=== PATIENT | male | born 1955 | race Caucasian/White ===

== ENCOUNTER 2016-11-08 09:13 | Observation (INO) | payer OTHER ==
[2016-11-08] MEDS ORDERED: ASPIRIN 81 MG TAB.CHEW PO ONE (09:18)
[2016-11-08] MEDS ORDERED: ASPIRIN 81 MG TAB.CHEW ONE (09:22)
--- NOTE | 2016-11-08 09:34 | ERNOTE ---
Chest Pain/Cardiac HPI Time Seen by Provider: 11/08/16 09:14 Source: patient Exam Limitations: no limitations Allergies/Adverse Reactions: Allergies No Known Allergies Allergy (Verified 05/14/13 14:21) Home Medications: HOME MEDICATIONS Lisinopril 20 mg PO BID 03/08/13 [Last Taken Unknown] glipiZIDE [Glipizide Xl] 10 mg PO BID 03/08/13 [Last Taken Unknown] metFORMIN HCL [Metformin HCl] 1,000 mg PO BID 03/08/13 [Last Taken Unknown] Aspirin [Aspirin Chewable] 81 mg PO DAILY 11/08/16 [Last Taken Unknown] Atorvastatin Calcium [Lipitor] 40 mg PO DAILY 11/08/16 [Last Taken Unknown] Metoclopramide HCl [Reglan] 10 mg PO QID 11/08/16 [Last Taken Unknown] Multivit-Min/Iron Fum/Folic AC [Fpwrg-Zwcduaf-Kzgxyedj Tablet] 1 each PO DAILY 11/08/16 [Last Taken Unknown] Omeprazole 40 mg PO DAILY 11/08/16 [Last Taken Unknown] Pioglitazone HCl [Actos] 15 mg PO DAILY 11/08/16 [Last Taken Unknown] Ranitidine HCl [Zantac] 300 mg PO HS 11/08/16 [Last Taken Unknown] sitaGLIPtin PHOSPHATE [Januvia] 50 mg PO DAILY 11/08/16 [Last Taken Unknown] Narrative: Patient has had intermittent chest pain for about two months, symptoms usually twice a week, increasing in frequency and severity, had on episode yesterday and one this morning that lasted 30 minutes. He still has chest pressure (4/10) now, worse with exertion Date (Duration): 11/08/16 Time (Timing): 08:15 Timing: intermittent Severity/Quality: moderate, pressure Location: central Chest Pain Radiation: shoulders Activities at Onset: activity Modifying Factors - Improves: Present: rest Modifying Factors - Worsens: Present: exercise. Absent: breathing, coughing, movement Nitro Today/Relief: no nitro taken today Aspirin Treatment Today: 81 mg x 1, provided at home Associated Symptoms: Present: dizziness, nausea. Absent: syncope, shortness of breath, diaphoresis Prior Chest Pain/Cardiac Workup: Reports: no prior cardiac workup Prior Treatment: Reports: recently seen - diagnosed with refluc and given antacids Review of Systems - Review of Systems Constitutional: Absent: recent illness, fever ENT: Absent: nose congestion, sore throat Respiratory: Absent: shortness of breath, cough Cardiology: Present: See HPI, chest pain. Absent: palpitations, syncope Gastrointestinal/Abdominal: Present: nausea. Absent: vomiting, diarrhea, abdominal pain Genitourinary: Present: no symptoms reported Musculoskeletal: Present: no symptoms reported Skin: Present: no symptoms reported Neurological: Present: dizziness/light-headedness. Absent: headache, weakness, numbness - Patient's Past Medical History Patient History - Medical: Diabetes Type 2, Kidney stone Patient History - Cardiac/Respiratory: Hypertension, Hyperlipidemia Patient History - Surgical Procedures: Hernia Repair - Family History Mother Family History - Medical: Diabetes Type 2 - Social History Living Situations: home Smoking Status: Never smoker Alcohol Use: none Drug Use: none - Immunizations Immunizations Up to Date: Yes Physical Exam - Physical Exam General Appearance: Present: wd/wn, alert, no apparent distress, anxious, obese Eye Exam: Normal inspection: bilateral Respiratory: Present: no respiratory distress, normal breath sounds, no accessory muscle use, chest nontender, lungs clear Cardiovascular/Chest: Present: regular rate, rhythm, no murmur Gastrointestinal/Abdominal: Present: normal bowel sounds, nontender, nondistended, soft Extremity Exam: Present: no edema Neurological Exam: Present: alert, oriented, normal mood/affect Skin Exam: Present: normal color, warm/dry ED Progress - Results and Orders Patient's Lab Results:: I have reviewed the patient's lab results. - Vital Signs Patient's Vital Signs:: I have reviewed the patient's vital signs. - EKG EKG: NSR, nonspecific ST T wave changes - anterior leads, changed from - 2013 EKG read: Interp. by me - X-Ray X-Ray #1 X-Ray: chest - no acute findings Interpretation: Reviewed by me - Progress/Reassessment Progress Note-Subjective: 11/08/16 09:33 pain down to 02/26 after one nitro 11/08/16 10:09 no pain nor pressure 11/08/16 10:20 patient had symptoms again when walking to the bathroom, resolved with nitro, no pain now discussed test results with patient and family, agreed to admission 11/08/16 10:30 discussed with lali Maya to admit Departure Clinical Impression: Chest pain Qualifiers: Chest pain type: precordial pain Qualified Code(s): R07.2 - Precordial pain - Departure Disposition: [facility] Condition: Stable Referrals: Tera Ashley MD [Primary Care Provider] -
[2016-11-08] MEDS ORDERED: NITROGLYCERIN 0.4 MG/TAB BTL SL ONE ×2 (09:35)
[2016-11-08 09:47] LABS: Hematocrit 40.5 % (42.0-52.0); Hemoglobin 13.9 gm/dL (13.5-18.0); Mean Cell Volume 91.8 fl (78-100); Mean Corpuscular Hemoglobin 31.5 pg (27-31); Mean Corpuscular Hgb Conc 34.3 g/dl (32-36); Mean Platelet Volume 9.4 fl (6.0-9.5); Neutrophil # 5.2 K/mm3 (1.3-6.0); Neutrophil % 58.5 % (42-75.0); Platelet Count 323 K/mm3 (150-450); Red Blood Count 4.41 M/mm3 (4.7-6.0); Red Cell Distribution Width 12.6 % (11.5-14.0); White Blood Count 8.9 K/mm3 (4.0-10.5)
[2016-11-08 10:09] LABS: Albumin * 3.7 gm/dl (3.4-5.0); Anion Gap 18.5 mmol/L (6.8-13.8); Bilirubin, Total 0.3 mg/dL (0.0-1.1); Ca. Corrected For Albumin 8.6 mg/dL (8.4-10.2); Calcium * 8.7 mg/dL (7.9-10.9); Carbon Dioxide 21.7 mmol/L (24-32.6); Potassium 4.2 mmol/L (3.4-4.6); Total Protein 7.3 gm/dL (6.2-8.2)
[2016-11-08 10:12] LABS: Troponin I 0.066 ng/ml (0.00-0.10)
[2016-11-08] MEDS ORDERED: FLU VACC QS2017-18(6MOS UP)/PF 60 MCG/0.5 ML SYRINGE IM ONE (14:00)
[2016-11-08 14:56] VITALS: BP 131/73
--- NOTE | 2016-11-08 15:22 | HP ---
<Ariana Benitez - Last Filed: 11/08/16 16:49> Chief Complaint - Chief Complaint Date of Service: 11/08/16 Time of Service: 15:22 Chief Complaint: chest pain History of Present Illness: Toni is a 61 year old male patient with a PMH of uncontrolled DM, HTN, HLD who presented to the ER with c/o CP. States that at breakfast, he started having sharp chest pain. chest pain radiated to both of his arms. no diaphoresis, no nausea. c/o dizziness with episodes with feelings of lightheadedness. after a few minutes, patient states that the sharp chest pain turned into a few pressure for the next 25 minutes. indicates that the pressure felt like a 100 lbs weight sitting on his chest. patient, himself, has no personal history of CAD or CHF. states significant family history of CAD, including bypass. In the ER, patient was given 1 sl ntg with relief of his chest pain. A little while later, the patient got up to use the restroom in the ER and while walking to the restroom had a return of the same chest pain that required another SL ntg. ER eval significant for serum glucose in the 300s. initial troponin 0.066. ekg showed no acute abnormalities. patient to be admitted for chest pain of unknown origin. - Patient's Past Medical History Patient History - Medical: Diabetes Type 2, Kidney stone Patient History - Cardiac/Respiratory: Hypertension, Hyperlipidemia Patient History - Cancer: No Hx of Cancer Patient History - Surgical Procedures: Hernia Repair Patient History - Other: None - Family History Mother Family History - Medical: , Diabetes Type 2 Father Family History - Medical: Family History - Cancer: Bone, Stomach - Social History Living Situations: spouse Abuse History: No History of abuse Psych History: No pertinent hx Smoking Status: Never smoker Have you smoked in the past 12 months: No Do you dip or chew tobacco: No Patient requests Smoking Cessation Consult: No Initiate information on Smoking Cessation: No Alcohol Use: none Drug Use: none - Immunizations Immunizations Up to Date: Yes Hx Pneumococcal Vaccination: No History of Influenza Vaccine: No Review Of Systems (GEN) - Review of Systems Generalized/Overall Review: Present: No Symptoms Reported EENTM: Present: No Symptoms Reported Respiratory: Present: No Symptoms Reported Cardiac: Present: Chest Pain Abdominal: Present: No Symptoms Reported Genitourinary: Present: No Symptoms Reported Musculoskeletal: Present: No Symptoms Reported Neurological: Present: No Symptoms Reported Skin: Present: No Symptoms Reported Endocrine: Present: No Symptoms Reported Misc: All systems neg except as marked Allergies/Adverse Reactions: Allergies Allergy/AdvReac Type Severity Reaction Status Date / Time No Known Allergies Allergy Verified 11/08/16 12:17 Home Medications: HOME MEDICATIONS Lisinopril 20 mg PO BID 03/08/13 [Last Taken 11/08/16] glipiZIDE [Glipizide Xl] 10 mg PO BID 03/08/13 [Last Taken 11/08/16] metFORMIN HCL [Metformin HCl] 1,000 mg PO BID 03/08/13 [Last Taken 11/08/16] Aspirin [Aspirin Chewable] 81 mg PO DAILY 11/08/16 [Last Taken 11/08/16] Atorvastatin Calcium [Lipitor] 40 mg PO DAILY 11/08/16 [Last Taken 11/08/16] Metoclopramide HCl [Reglan] 10 mg PO QID 11/08/16 [Last Taken 11/08/16] Multivit-Min/Iron Fum/Folic AC [Mqsll-Kmzzhik-Wxftsxco Tablet] 1 each PO DAILY 11/08/16 [Last Taken 11/08/16] Omeprazole 40 mg PO DAILY 11/08/16 [Last Taken 11/08/16] Pioglitazone HCl [Actos] 15 mg PO DAILY 11/08/16 [Last Taken 11/08/16] Ranitidine HCl [Zantac] 300 mg PO HS 11/08/16 [Last Taken 11/07/16] sitaGLIPtin PHOSPHATE [Januvia] 50 mg PO DAILY 11/08/16 [Last Taken 11/08/16] Exam - Exam Vital Signs: Vital Signs - Last Taken Temp 36.8 C 11/08/16 14:40 Pulse 82 11/08/16 14:40 Resp 18 11/08/16 14:40 BP 131/73 11/08/16 14:40 Pulse Ox 95 11/08/16 14:40 Constitutional: Present: Alert, Oriented x3, Cooperative, No distress ENT Exam: Present: hearing grossly normal Eye Exam: bilateral eye: normal inspection Neck: Present: full range of motion, supple Back Exam: Present: normal inspection, no CVA tenderness Respiratory: Present: lungs clear, normal breath sounds, no respiratory distress Cardiovascular/Chest: Present: normal peripheral pulses, regular rate, rhythm, no chest tenderness, no edema Peripheral Pulses: carotid (R): 2+, carotid (L): 2+, dorsalis-pedis (R): 2+, dorsalis-pedis (L): 2+, radial (R): 2+, radial (L): 2+ Abdomen: Present: Normal bowel sounds, soft, nontender, nondistended /Rectal: Present: Exam deferred Extremity: Present: normal range of motion, normal inspection Skin Exam: Present: normal color, warm/dry, no cyanosis Diagnostic Studies: Laboratory Results WBC 8.9 K/mm3 (4.0-10.5) 11/08/16 09:35 RBC 4.41 M/mm3 (4.7-6.0) L 11/08/16 09:35 Hgb 13.9 gm/dL (13.5-18.0) 11/08/16 09:35 Hct 40.5 % (42.0-52.0) L 11/08/16 09:35 MCV 91.8 fl (78-100) 11/08/16 09:35 MCH 31.5 pg (27-31) H 11/08/16 09:35 MCHC 34.3 g/dl (32-36) 11/08/16 09:35 RDW 12.6 % (11.5-14.0) 11/08/16 09:35 Plt Count 323 K/mm3 (150-450) 11/08/16 09:35 MPV 9.4 fl (6.0-9.5) 11/08/16 09:35 Immature Gran % (Auto) 0.60 % (0.001-0.429) H 11/08/16 09:35 Immature Gran # (Auto) 0.05 K/mm3 (0.000-0.0310) H 11/08/16 09:35 Neutrophils % 58.5 % (42-75.0) 11/08/16 09:35 Lymphocytes % 27.4 % (20-51) 11/08/16 09:35 Monocytes % 9.9 % (0.0-9) H 11/08/16 09:35 Eosinophils % 2.8 % (0.0-3.0) 11/08/16 09:35 Basophils % 0.8 % (0.0-1.0) 11/08/16 09:35 Nucleated RBC % 0.0 k/mm3 (0-1) 11/08/16 09:35 Neutrophils # 5.2 K/mm3 (1.3-6.0) 11/08/16 09:35 Lymphocytes # 2.4 k/mm3 (1.5-3.5) 11/08/16 09:35 Monocytes # 0.9 k/mm3 (0.0-1.0) 11/08/16 09:35 Eosinophils # 0.3 k/mm3 (0.0-0.7) 11/08/16 09:35 Absolute Basophils 0.1 k/mm3 (0.0-0.1) 11/08/16 09:35 Sodium 135 mmol/L (132-142) 11/08/16 09:35 Plasma Sodium 139 mmol/L (130-142) 11/08/16 09:35 Potassium 4.2 mmol/L (3.4-4.6) 11/08/16 09:35 Chloride 99 mmol/L (97-106) 11/08/16 09:35 Carbon Dioxide 21.7 mmol/L (24-32.6) L 11/08/16 09:35 Anion Gap 18.5 mmol/L (6.8-13.8) H 11/08/16 09:35 BUN 16 mg/dL (6-23) 11/08/16 09:35 Creatinine 0.94 mg/dL (0.4-1.4) 11/08/16 09:35 Est GFR (Non-Af Amer) 86 mL/min (60-130) 11/08/16 09:35 BUN/Creatinine Ratio 17.0 (9.0-21.6) 11/08/16 09:35 Random Glucose 345 mg/dL (70-110) H 11/08/16 09:35 Calcium 8.7 mg/dL (7.9-10.9) 11/08/16 09:35 Calcium Adj for Albumin 8.6 mg/dL (8.4-10.2) 11/08/16 09:35 Total Bilirubin 0.3 mg/dL (0.0-1.1) 11/08/16 09:35 AST 15 U/L (0-48) 11/08/16 09:35 ALT 46 U/L (19-67) 11/08/16 09:35 Alkaline Phosphatase 103 U/L (50-170) 11/08/16 09:35 Troponin I 0.066 ng/ml (0.00-0.10) 11/08/16 09:35 Total Protein 7.3 gm/dL (6.2-8.2) 11/08/16 09:35 Albumin 3.7 gm/dl (3.4-5.0) 11/08/16 09:35 Assessment/Plan - Narrative Narrative: 60 year old male admitted with chest pain and unstable angina. trend troponins and ekg. monitor on tele. cont aspirin and statin. heart diet and consistent carb diet. if troponins and ekg negative, recommend stress test. addendum: 2nd troponin critical at 0.280. ekg showed no acute change. diagnosis NSTEMI and unstable transfer. emergent transfer to [facility] for cardiology consult. - Assessment/Plan (1) Chest pain of unknown etiology Problem: Acute (2) HTN (hypertension) Problem: Acute (3) HLD (hyperlipidemia) Problem: Acute (4) Uncontrolled diabetes mellitus Problem: Acute (5) Unstable angina Problem: Acute (6) NSTEMI (non-ST elevated myocardial infarction) Problem: Acute <Tera Ashley - Last Filed: 11/08/16 19:55> History of Present Illness: I agree with the initial treatment assessment and plan. I personally guided all of our nurse practitioner hospitalist care for this patient. Immunizations: IMMUNIZATION HX Immunizations Up to Date Yes History of Influenza Vaccine No Hx Pneumococcal Vaccination No Exam - Exam Vital Signs: Vital Signs - Last Taken Temp 36.8 C 11/08/16 14:40 Pulse 82 11/08/16 16:51 Resp 18 11/08/16 14:40 BP 131/73 11/08/16 16:51 Pulse Ox 95 11/08/16 14:40 Diagnostic Studies: Abnormal Lab Results 11/08/16 11/08/16 Range/Units 15:06 15:30 Hemoglobin A1c 8.5 H (4.00-6.0) % Troponin I 0.280 H* (0.00-0.10) ng/ml Laboratory Results WBC 8.9 K/mm3 (4.0-10.5) 11/08/16 09:35 RBC 4.41 M/mm3 (4.7-6.0) L 11/08/16 09:35 Hgb 13.9 gm/dL (13.5-18.0) 11/08/16 09:35 Hct 40.5 % (42.0-52.0) L 11/08/16 09:35 MCV 91.8 fl (78-100) 11/08/16 09:35 MCH 31.5 pg (27-31) H 11/08/16 09:35 MCHC 34.3 g/dl (32-36) 11/08/16 09:35 RDW 12.6 % (11.5-14.0) 11/08/16 09:35 Plt Count 323 K/mm3 (150-450) 11/08/16 09:35 MPV 9.4 fl (6.0-9.5) 11/08/16 09:35 Immature Gran % (Auto) 0.60 % (0.001-0.429) H 11/08/16 09:35 Immature Gran # (Auto) 0.05 K/mm3 (0.000-0.0310) H 11/08/16 09:35 Neutrophils % 58.5 % (42-75.0) 11/08/16 09:35 Lymphocytes % 27.4 % (20-51) 11/08/16 09:35 Monocytes % 9.9 % (0.0-9) H 11/08/16 09:35 Eosinophils % 2.8 % (0.0-3.0) 11/08/16 09:35 Basophils % 0.8 % (0.0-1.0) 11/08/16 09:35 Nucleated RBC % 0.0 k/mm3 (0-1) 11/08/16 09:35 Neutrophils # 5.2 K/mm3 (1.3-6.0) 11/08/16 09:35 Lymphocytes # 2.4 k/mm3 (1.5-3.5) 11/08/16 09:35 Monocytes # 0.9 k/mm3 (0.0-1.0) 11/08/16 09:35 Eosinophils # 0.3 k/mm3 (0.0-0.7) 11/08/16 09:35 Absolute Basophils 0.1 k/mm3 (0.0-0.1) 11/08/16 09:35 Sodium 135 mmol/L (132-142) 11/08/16 09:35 Plasma Sodium 139 mmol/L (130-142) 11/08/16 09:35 Potassium 4.2 mmol/L (3.4-4.6) 11/08/16 09:35 Chloride 99 mmol/L (97-106) 11/08/16 09:35 Carbon Dioxide 21.7 mmol/L (24-32.6) L 11/08/16 09:35 Anion Gap 18.5 mmol/L (6.8-13.8) H 11/08/16 09:35 BUN 16 mg/dL (6-23) 11/08/16 09:35 Creatinine 0.94 mg/dL (0.4-1.4) 11/08/16 09:35 Est GFR (Non-Af Amer) 86 mL/min (60-130) 11/08/16 09:35 BUN/Creatinine Ratio 17.0 (9.0-21.6) 11/08/16 09:35 Random Glucose 345 mg/dL (70-110) H 11/08/16 09:35 Mean Blood Glucose 197 mg/dL 11/08/16 15:06 Hemoglobin A1c 8.5 % (4.00-6.0) H 11/08/16 15:06 Calcium 8.7 mg/dL (7.9-10.9) 11/08/16 09:35 Calcium Adj for Albumin 8.6 mg/dL (8.4-10.2) 11/08/16 09:35 Total Bilirubin 0.3 mg/dL (0.0-1.1) 11/08/16 09:35 AST 15 U/L (0-48) 11/08/16 09:35 ALT 46 U/L (19-67) 11/08/16 09:35 Alkaline Phosphatase 103 U/L (50-170) 11/08/16 09:35 Troponin I 0.280 ng/ml (0.00-0.10) H* 11/08/16 15:30 Total Protein 7.3 gm/dL (6.2-8.2) 11/08/16 09:35 Albumin 3.7 gm/dl (3.4-5.0) 11/08/16 09:35
[2016-11-08 15:37] LABS: Hemoglobin A1C 8.5 % (4.00-6.0)
[2016-11-08] MEDS ORDERED: CLOPIDOGREL BISULFATE 75 MG TABLET PO STA (16:14)
[2016-11-08] MEDS ORDERED: HEPARIN SODIUM,PORCINE/D5W 25,000 UNITS/500 ML BAG IV SCH (16:15)
[2016-11-08] MEDS ORDERED: ATORVASTATIN CALCIUM 40 MG TABLET PO STA (16:15)
[2016-11-08] MEDS ORDERED: HEPARIN SODIUM,PORCINE 5,000 UNITS/ML VIAL IV ONE (16:20)
[2016-11-08] MEDS ORDERED: NITROGLYCERIN IN 5 % DEXTROSE 50 MG/250 ML INFUS..BTL IV PRN (16:48)
[2016-11-08] MEDS ORDERED: glipiZIDE 5 MG TAB.SR.24H PO SCH (17:00)
[2016-11-08] MEDS ORDERED: METOCLOPRAMIDE HCL 10 MG TABLET PO SCH (17:00)
--- NOTE | 2016-11-08 17:31 | DS ---
<GabiTera - Last Filed: 11/08/16 19:55> Transfer Discharge Summary - Diagnosis(s)/Problems (1) HLD (hyperlipidemia) Problem: Acute (2) HTN (hypertension) Problem: Acute (3) Unstable angina Problem: Acute - Course Description of Stay: I agree with the plan to transfer, and was instrumental with all of the treatment components along the way. I guided our nurse practitioner hospitalist directly in the care of this patient. The patient had recurrent chest pain while here, troponin elevated, he was given a dose of Plavix, 600 mg po, a loading dose of heparin, then a drip, and started on a nitro drip. He was given atorvastatin 40 mg po. Our hospitalist arranged transfer to [facility] by telephone. The physician there accepted, transfer was by ambulance. Procedures Performed: none - Results and Findings Results and Findings: Laboratory Results - last 24 hr 11/08/16 11/08/16 15:06 15:30 Mean Blood Glucose 197 Hemoglobin A1c 8.5 H Troponin I 0.280 H* - Medications Medications: Active Medications Discontinued Medications Aspirin (Aspirin Chewable) 243 mg PO ONCE ONE Stop: 11/08/16 09:19 Last Admin: 11/08/16 09:25 Dose: 243 mg Atorvastatin Calcium (Lipitor) 40 mg PO ONCE STA Stop: 11/08/16 16:16 Last Admin: 11/08/16 16:23 Dose: 40 mg Clopidogrel Bisulfate (Plavix) 600 mg PO ONCE STA Stop: 11/08/16 16:15 Last Admin: 11/08/16 16:18 Dose: 600 mg Glipizide (Glucotrol Xl) 10 mg PO BIDWM [place] Stop: 12/08/16 17:01 Last Admin: 11/08/16 16:27 Dose: 10 mg Heparin Sodium (Porcine) (Heparin Sodium) 4,000 units IV ONCE ONE Stop: 11/08/16 16:21 Last Admin: 11/08/16 16:22 Dose: 4,000 units Heparin Sodium/Dextrose (Heparin 25,000 Units/D5w 500 Ml) 25,000 units in 500 mls @ 20 mls/hr IV Q24H [place] PRN Reason: 1,000 UNITS/HR Stop: 12/08/16 16:16 Last Admin: 11/08/16 16:21 Dose: 1,000 units/hr, 20 mls/hr Nitroglycerin/Dextrose (Nitroglycerin 50 Mg/D5w 250ml) 50 mg in 250 mls @ 1.5 mls/hr IV TITR PRN; Protocol; 5 MCG/MIN PRN Reason: CHEST PAIN Stop: 12/08/16 16:49 Last Admin: 11/08/16 16:51 Dose: 5 mcg/min, 1.5 mls/hr Influenza Virus Vaccine Quadrival (Flulaval Quad [id number] Syringe) 60 mcg IM .ONCE ONE Stop: 11/08/16 14:01 Last Admin: 11/08/16 14:14 Dose: 60 mcg Metoclopramide HCl (Reglan) 10 mg PO QID [place] Stop: 12/08/16 17:01 Last Admin: 11/08/16 16:28 Dose: 10 mg Nitroglycerin (Nitrostat) 0.4 mg SL ONCE ONE Stop: 11/08/16 09:36 Last Admin: 11/08/16 09:33 Dose: 0.4 mg Nitroglycerin (Nitrostat) 0.4 mg SL ONCE ONE Stop: 11/08/16 09:36 Last Admin: 11/08/16 10:15 Dose: 0.4 mg - Disposition Disposition: [facility] Condition: Serious <JeannineAriana parham - Last Filed: 12/04/16 09:14> Transfer Discharge Summary - Diagnosis(s)/Problems (1) Chest pain of unknown etiology Problem: Acute (2) HTN (hypertension) Problem: Acute (3) HLD (hyperlipidemia) Problem: Acute (4) Uncontrolled diabetes mellitus Problem: Acute (5) Unstable angina Problem: Acute (6) NSTEMI (non-ST elevated myocardial infarction) Problem: Acute - Course Description of Stay: Toni is a 61 year old male patient with a PMH of uncontrolled DM, HTN, HLD who presented to the ER with c/o CP. States that at breakfast, he started having sharp chest pain. chest pain radiated to both of his arms. no diaphoresis, no nausea. c/o dizziness with episodes with feelings of lightheadedness. after a few minutes, patient states that the sharp chest pain turned into a few pressure for the next 25 minutes. indicates that the pressure felt like a 100 lbs weight sitting on his chest. patient, himself, has no personal history of CAD or CHF. states significant family history of CAD, including bypass. In the ER, patient was given 1 sl ntg with relief of his chest pain. A little while later, the patient got up to use the restroom in the ER and while walking to the restroom had a return of the same chest pain that required another SL ntg. ER eval significant for serum glucose in the 300s. initial troponin 0.066. ekg showed no acute abnormalities. patient to be admitted for chest pain of unknown origin. second troponin elevated to 0.2. patient continued to have chest pain when walking to bathroom. given unstable angina, decision was made to transfer pt to [facility]. pt agreed to transfer and he was transferred in serious condition. Procedures Performed: none - Results and Findings Results and Findings: Laboratory Results - last 24 hr 11/08/16 11/08/16 15:06 15:30 Mean Blood Glucose 197 Hemoglobin A1c 8.5 H Troponin I 0.280 H* - Medications Medications: Active Medications Glipizide (Glucotrol Xl) 10 mg PO BIDWM [facility] Stop: 12/08/16 17:01 Last Admin: 11/08/16 16:27 Dose: 10 mg Heparin Sodium/Dextrose (Heparin 25,000 Units/D5w 500 Ml) 25,000 units in 500 mls @ 20 mls/hr IV Q24H [place] PRN Reason: 1,000 UNITS/HR Stop: 12/08/16 16:16 Last Admin: 11/08/16 16:21 Dose: 1,000 units/hr, 20 mls/hr Nitroglycerin/Dextrose (Nitroglycerin 50 Mg/D5w 250ml) 50 mg in 250 mls @ 1.5 mls/hr IV TITR PRN; Protocol; 5 MCG/MIN PRN Reason: CHEST PAIN Stop: 12/08/16 16:49 Last Admin: 11/08/16 16:51 Dose: 5 mcg/min, 1.5 mls/hr Metoclopramide HCl (Reglan) 10 mg PO QID [facility] Stop: 12/08/16 17:01 Last Admin: 11/08/16 16:28 Dose: 10 mg Discontinued Medications Aspirin (Aspirin Chewable) 243 mg PO ONCE ONE Stop: 11/08/16 09:19 Last Admin: 11/08/16 09:25 Dose: 243 mg Atorvastatin Calcium (Lipitor) 40 mg PO ONCE STA Stop: 11/08/16 16:16 Last Admin: 11/08/16 16:23 Dose: 40 mg Clopidogrel Bisulfate (Plavix) 600 mg PO ONCE STA Stop: 11/08/16 16:15 Last Admin: 11/08/16 16:18 Dose: 600 mg Heparin Sodium (Porcine) (Heparin Sodium) 4,000 units IV ONCE ONE Stop: 11/08/16 16:21 Last Admin: 11/08/16 16:22 Dose: 4,000 units Influenza Virus Vaccine Quadrival (Flulaval Quad [id number] Syringe) 60 mcg IM .ONCE ONE Stop: 11/08/16 14:01 Last Admin: 11/08/16 14:14 Dose: 60 mcg Nitroglycerin (Nitrostat) 0.4 mg SL ONCE ONE Stop: 11/08/16 09:36 Last Admin: 11/08/16 09:33 Dose: 0.4 mg Nitroglycerin (Nitrostat) 0.4 mg SL ONCE ONE Stop: 11/08/16 09:36 Last Admin: 11/08/16 10:15 Dose: 0.4 mg
[2016-11-08] MEDS ORDERED: ATORVASTATIN CALCIUM 40 MG TABLET PO SCH (21:00)
[2016-11-08] MEDS ORDERED: FAMOTIDINE 20 MG TABLET PO SCH (21:00)
[2016-11-08] MEDS ORDERED: LISINOPRIL 20 MG TABLET PO SCH (21:00)
[2016-11-09] MEDS ORDERED: PIOGLITAZONE HCL 15 MG TABLET PO SCH (09:00)
[2016-11-09] MEDS ORDERED: ASPIRIN 81 MG TAB.CHEW PO SCH (09:00)
[2016-11-09] MEDS ORDERED: MULTIVITAMIN/IRON/FOLIC ACID 1 TAB TABLET PO SCH (09:00)
[2016-11-09] MEDS ORDERED: PANTOPRAZOLE SODIUM 40 MG TABLET.EC PO SCH (09:00)
[2016-11-09] MEDS ORDERED: sitaGLIPtin PHOSPHATE 50 MG TABLET PO SCH (09:00)
== END 2016-11-08 17:43 | disposition short-term general hospital (02) ==
LOC: ER 09:13 → MS 10:33
PROVIDERS: ADMIT Nurse Practitioner Critical Care Medicine; ATTEND Allergy & Immunology
PROC: 3E0134Z Introduction of Serum, Toxoid and Vaccine into Subcutaneous Tissue, Percutaneous Approach (ICD-10-PCS; principal; 2016-11-08)
DX: I21.4 Non-ST elevation (NSTEMI) myocardial infarction (principal); I10 Essential (primary) hypertension; E11.65 Type 2 diabetes mellitus with hyperglycemia; Z79.84 Long term (current) use of oral hypoglycemic drugs; E78.5 Hyperlipidemia, unspecified; Z23 Encounter for immunization
CPT/HCPCS: 36415; 71020; 80053; 83036; 84484; 85025; 90471; 90686; 93005; 96374; 99284; G0378